=== PATIENT | female | born 1965 | race American Indian/Alaskan Native ===

== ENCOUNTER 2017-07-06 10:00 | Outpatient (CLI) | payer OTHER ==
--- NOTE | 2017-07-06 10:39 | XRay Report ---
Left foot 2 views: History: Left foot pain. Findings: There is suspicion of mild arthritic changes at the first tarsometatarsal joint. The metatarsophalangeal and interphalangeal joints grossly appears unremarkable. There is spur noted at the posterior inferior calcaneum. Impression: Findings as detailed above..
== END 2017-07-06 10:01 | disposition home or self-care (01) ==
LOC: XRAY 10:00
PROVIDERS: ATTEND Internal Medicine
DX: M77.32 Calcaneal spur, left foot (principal); F41.9 Anxiety disorder, unspecified; G43.009 Migraine without aura, not intractable, without status migrainosus; I10 Essential (primary) hypertension; F32.9 Major depressive disorder, single episode, unspecified